=== PATIENT | female | born 1950 | race Two or more races ===

== ENCOUNTER 2022-10-25 10:05 | Emergency (ER) | payer MEDICARE ==
[~2022-10-25] VITALS: Ht 154.9 cm; Wt 64.1 kg
[2022-10-25] MEDS ORDERED: ACETAMINOPHEN 500 MG TAB PO ONE (11:30)
[2022-10-25 12:51] VITALS: BP 158/90
[2022-10-25] MEDS ORDERED: ACET-1080 PO ×3 (13:00→13:02)
== END 2022-10-25 13:08 | disposition home or self-care (01) ==
LOC: ER 10:05
DX: S52.502A Unspecified fracture of the lower end of left radius, initial encounter for closed fracture (principal); S39.012A Strain of muscle, fascia and tendon of lower back, initial encounter; M51.36 Other intervertebral disc degeneration, lumbar region; W18.00XA Striking against unspecified object with subsequent fall, initial encounter; Y93.89 Activity, other specified; Y92.89 Other specified places as the place of occurrence of the external cause; Y99.8 Other external cause status
CPT/HCPCS: 29125; 72100; 73130

== ENCOUNTER → 2022-11-04 | Day surgery (SDC) | payer MEDICARE ==
[~2022-11-04] VITALS: Ht 154.9 cm; Wt 62.1 kg
[~2022-11-04] MED LIST: ACET-1080 PO; ASPI1TAB20 PO; BUPIVACAINE 0.5% P/F INJ 10 ML VIAL ONE; BUPIVACAINE HCL 0.25% P/F 10 ML VIAL ONE; DexAMETHasone SOD PHOS 10MG/1ML VIAL INJ ONE; DexAMETHasone SOD PHOS 4 MG/1ML SDV INJ ONE; ETOMIDATE (2MG/ML) 20ML VIAL IV ONE; LABETALOL HCL 5 MG/ML 4ML SYRINGE IV PRN; LIDOCAINE 1%HCL (LOCAL ANESTH) 10 ML MDV ONE; MEPERIDINE HCL (25 MG/ML) 1ML VIAL ONE; MIDAZOLAM HCL 2MG/2ML 2ml VIAL (1mg/ml) IV PRN; MIDAZOLAM HCL 2MG/2ML 2ml VIAL (1mg/ml) ONE; MORPHINE SULFATE 4 MG/ML SYR/VIAL IV PRN; ONDANSETRON HCL 4 MG/2 ML VIAL IV PRN; ONDANSETRON HCL 4 MG/2 ML VIAL ONE; ceFAZolin 1GM/50ML 100 ML IV ONE; ePHEDrine SULFATE 50 MG/ML AMP IV PRN; fentaNYL CITRATE 100 MCG/2 ML VL ONE
[2022-11-04] MEDS: HYDROmorphone HCL 2 MG/ML VL/or syr IV PRN ×2 (10:40→10:52)
[2022-11-04 12:25] VITALS: BP 188/90
== END | disposition home or self-care (01) ==
LOC: SUR 07:03
PROVIDERS: ATTEND Orthopaedic Surgery Adult Reconstructive Orthopaedic Surgery
DX: S52.572A Other intraarticular fracture of lower end of left radius, initial encounter for closed fracture (principal); F17.210 Nicotine dependence, cigarettes, uncomplicated; I10 Essential (primary) hypertension; J44.9 Chronic obstructive pulmonary disease, unspecified; K21.9 Gastro-esophageal reflux disease without esophagitis; I21.9 Acute myocardial infarction, unspecified; Z79.82 Long term (current) use of aspirin; W20.8XXA Other cause of strike by thrown, projected or falling object, initial encounter; Y92.89 Other specified places as the place of occurrence of the external cause; Y99.8 Other external cause status; Z98.890 Other specified postprocedural states; Z20.822 Contact with and (suspected) exposure to COVID-19; Z90.710 Acquired absence of both cervix and uterus; Z90.49 Acquired absence of other specified parts of digestive tract
CPT/HCPCS: 25609; 73100; C1713; J0690; J1100; J1170; J2001; J2175; J2250; J2405; J3010; J3490; U0003; 76000